=== PATIENT | male | born 1975 | race Caucasian/White ===

== ENCOUNTER 2022-05-02 20:37 | Inpatient (IN) ==
--- NOTE | 2022-05-02 20:50 | Emergency Department Note ---
History of Present Illness General Chief complaint: Fall Stated complaint: FALL / lt HIP PAIN Time Seen by Provider: 05/02/22 20:40 History of Present Illness 46-year-old male presents to the ED with a chief complaint of left hip pain. The patient states that he was doing a high kick karate kick around 7 AM this morning when his other leg lost head loader of the ground causing him to land onto his left side. He has been having left hip pain since then. He states that he walked for a few minutes after that and then has not been able to walk well since because of the pain. The patient has an abrasion to the left maxillary region as well as the left supraorbital region. Denies other injuries or pain. Home Medications Medication Instructions Recorded Confirmed Type No Known Home Medications 05/02/22 05/02/22 History Allergies Allergy/AdvReac Type Severity Reaction Status Date / Time No Known Allergies Allergy Unverified 05/02/22 22:51 Past Med/Surg History Social History Smoking Status: Current every day smoker Tobacco Type: E-cigarettes / Vaping Preferred Language: Zimbabwean Feels Safe at Home: Yes Review of Systems A total of 10 systems reviewed and were otherwise negative Physical Exam Vital Signs Vital Signs - 24 hr 05/02/22 20:48 05/02/22 22:37 05/02/22 23:00 Temperature 37.6 C H Temperature Source Oral Pulse Rate 67 Pulse Rate [Apical] 67 72 Respiratory Rate 18 22 18 Respiratory Effort / Characteristics Non-Labored Spontaneous Non-Labored Spontaneous Non-Labored Spontaneous Respiratory Depth Normal Normal Normal Blood Pressure 114/83 Blood Pressure [Right Arm] 119/65 105/68 Blood Pressure Mean 93 Blood Pressure Mean [Right Arm] 83 80 Pulse Oximetry 99 91 97 Oxygen Delivery Method Room Air Room Air Room Air Sepsis Recent Fever Within 48 Hours No Sepsis New/Unexplained Change in Mental Status No Sepsis Action Taken by Nursing No Action Required CONSTITUTIONAL/VITAL SIGNS: Reviewed / noted above. GENERAL: Non-toxic in appearance. INTEGUMENTARY: Warm, dry, and Rudy. HEAD: Normocephalic. There is a small left maxillary abrasion as well as a left supraorbital abrasion. EYES: without scleral icterus or trauma. ENT/OROPHARYNX: clear and moist. LYMPHADENOPATHY/NECK: Is supple without lymphadenopathy or meningismus. RESPIRATORY: Clear to auscultation bilaterally. No increased work of breathing. CARDIOVASCULAR: Regular rate and rhythm. GI/ABDOMEN: Soft and nontender. No organomegaly or pulsatile mass. EXTREMITIES: Warm and well perfused. Tenderness to palpation of left hip. Pain in left leg with axial loading. No shortening or rotation. BACK: No CVA tenderness. NEUROLOGICAL: Intact without focal deficits. PSYCHIATRIC: normal affect. MUSCULOSKELETAL: Normally developed with good muscle tone. TRIAGE NURSING DOCUMENTATION REVIEWED. Course Administered Medications Morphine Sulfate (Morphine Sulfate 4 Mg/Ml 1 Ml Carp\Vial) 4 mg IV Q1H PRN PRN Reason: Severe Pain (Rating 7,8,9,10) Stop: 05/16/22 22:06 Last Admin: 05/02/22 22:19 Dose: 4 mg Documented by: [id number] Medical Decision Making Differential Diagnosis Fracture, subluxation, dislocation, contusion, ligamentous injury, neurovascular, compartment syndrome, rhabdomyolysis, as well as other pathologies. Medical Records Attestation: I reviewed the patient's medical records. Home Medications Current Medication List: was personally reviewed by me Laboratory Data Result diagrams: 05/02/22 22:49 05/02/22 22:49 Lab Results 05/02/22 05/02/22 Range/Units 22:19 22:49 WBC 12.91 H (4.8-10.8) K/uL RBC 4.43 L (4.7-6.1) M/uL Hgb 14.0 (14.0-18.0) g/dL Hct 39.8 L (42-52) % MCV 89.8 (80-100) fL MCH 31.6 (25-34) pg MCHC 35.2 (32-36) g/dL RDW Std Deviation 40.8 (36.4-46.3) fL RDW Coeff of Crystal 12.4 (11.5-14.5) % Plt Count 207 (130-400) K/uL MPV 9.8 (7.4-10.4) fL Immature Gran % (Auto) 0.2 % Neut % (Auto) 83.3 % Lymph % (Auto) 8.4 % [place] % (Auto) 7.7 % Eos % (Auto) 0.2 % Baso % (Auto) 0.2 % Neut # (Auto) 10.74 H (1.4-6.5) K/uL Lymph # (Auto) 1.09 L (1.2-3.4) K/uL [place] # (Auto) 1.00 H (0.11-0.59) K/uL Eos # (Auto) 0.03 (0-0.5) K/uL Baso # (Auto) 0.02 (0-0.2) K/uL Immature Gran # (Auto) 0.03 H (0.00-0.02) K/uL SARS-CoV-2, RNA, NAAT NEGATIVE (NEGATIVE) Imaging Data My Impression: X-ray of the left hip and pelvis: Per my interpretation shows a nondisplaced intertrochanteric left hip fracture. MDM Narrative 46-year-old male presents with left hip pain after fall around 7 AM this morning onto his left hip. He has abrasions to his left facial region as well. X-ray reveals a left intertrochanteric hip fracture. The patient will be seen by the hospitalist for further inpatient evaluation and care. I did speak with Dr. Mckenna about the patient. He saw the patient in the ED. He requested a CT scan of the hip. Impression & Plan Closed left hip fracture Discharge Plan Visit Data Chief Complaint: Fall Stated Complaint: FALL / lt HIP PAIN ED Provider: Steven Johns Discharge Problem: Closed left hip fracture Patient Disposition: Being Evaluated by Hospitalist Forms Stand Al[facility] Pres[facility] Prescriptions: No Action No Known Home Medications RF: 0 Referrals Referrals: PCP,NO [Physician] - Discharge Problem: Closed left hip fracture Qualifiers: Encounter type: initial encounter Qualified Code(s): S72.002A - Fracture of unspecified part of neck of left femur, initial encounter for closed fracture
[2022-05-02] MEDS ORDERED: MoRPHine SULFATE 2 MG/ML CARP IV PRN (22:07)
[2022-05-02] MEDS: MoRPHine SULFATE 4 MG/ML 1 ML CARP\\VIAL IV PRN ×2 (22:19→23:30)
[2022-05-02 23:05] LABS: Basophils # (auto) 0.02 K/uL (0-0.2); Basophils % (auto) 0.2 %; Eosinophils # (auto) 0.03 K/uL (0-0.5); Eosinophils % (auto) 0.2 %; Hematocrit (blood only) 39.8 % (42-52); Immature Granulocytes # (auto) 0.03 K/uL (0.00-0.02); Immature Granulocytes % (auto) 0.2 %; Lymphocytes # (auto) 1.09 K/uL (1.2-3.4); Lymphocytes % (auto) 8.4 %; Mean Corpuscular Hemoglobin 31.6 pg (25-34); Mean Corpuscular Hgb Conc 35.2 g/dL (32-36); Mean Corpuscular Volume 89.8 fL (80-100); Mean Platelet Volume 9.8 fL (7.4-10.4); Monocytes % (auto) 7.7 %; Neutrophils # (auto) 10.74 K/uL (1.4-6.5); Neutrophils % (auto) 83.3 %; Platelet Count 207 K/uL (130-400); RDW Coefficient of Variation 12.4 % (11.5-14.5); RDW Standard Deviation 40.8 fL (36.4-46.3); Red Blood Count 4.43 M/uL (4.7-6.1); White Blood Count 12.91 K/uL (4.8-10.8)
[2022-05-02 23:20] LABS: Partial Thromboplastin Ratio 0.9; Partial Thromboplastin Time 23.6 Seconds (21.0-31.0); Prothrombin Time 10.8 Seconds (9.0-12.0)
[2022-05-02 23:21] LABS: Albumin Globulin Ratio 1.6 (0.9-2); Albumin Level 4.1 gm/dl (3.4-5.0); BUN Creatinine Ratio 19.4 (10-20); Bilirubin,Total 0.6 mg/dl (0.2-1.0); Calcium 9.2 mg/dl (8.5-10.1); Creatinine Clr Calc Pharmacy 91.4 ml/min; Est GFR (African American) 95.6 ml/min; Est GFR (Non-African American) 82.5 ml/min; Globulin 2.6 gm/dl (2.5-4.0); Potassium 4.1 mmol/L (3.5-5.1); Total Protein 6.7 gm/dl (6.0-8.3)
--- NOTE | 2022-05-03 00:38 | History & Physical Report ---
Date of Service May 03, 2022 Assessment & Plan (1) Closed left hip fracture: Plan: Admit to medical surgical floor N.p.o. after midnight LR at 80 mils per hour Acetaminophen 1 g IV every 8 hours as needed mild pain or fever Morphine sulfate 2 mg IV every 3 hours as needed moderate pain Morphine sulfate 4 mg IV every 3 hours as needed severe pain Zofran 4 mg IV every 6 hours as needed Orthopedic surgery consult Dr. Mckenna has seen the patient in the ED History of Present Illness Chief Complaint: The patient presents emergency department with complaint of left hip pain that occurred as he was attempting a high kick karate kick around 7 AM in the morning, when his right leg lost plastic technician on the ground causing him to land on his left side. Primary Care Provider: SHARI Morrison The patient is a 46-year-old male with no significant past medical history who presents to the emergency department after the acute onset left hip pain as noted above. X-rays in the emergency department revealed a closed left hip fracture. Hip CT showed a mildly comminuted intertrochanteric fracture of the proximal left femur with slight displacement of the greater trochanter and an essentially nondisplaced fracture line extending across the proximal femur to the lesser trochanter. Allergies Allergy/AdvReac Type Severity Reaction Status Date / Time No Known Allergies Allergy Unverified 05/02/22 22:51 Home Medications Medication Instructions Recorded Confirmed Type No Known Home Medications 05/02/22 05/02/22 History Past Med/Surg History Social History Smoking Status: Former smoker Tobacco Type: E-cigarettes / Vaping Smoking End Date: 03/18; Hx Alcohol Use: No Hx Substance Use: No Preferred Language: Romanian Communication Ability: Effective Retarder Operator Required: No Beliefs That Will Affect Care: None Current Living Situation: Other Current Living Situation Comment: inmate Other Information That Helps Us Care for You: No Feels Safe at Home: Yes Review of Systems Review of Systems: The patient denies chest pain, palpitations, shortness of breath, dyspnea on exertion, cough, lower extremity swelling, sore throat, fevers, chills, sweats, weight change, fatigue, nausea, vomiting, diarrhea , constipation, abdominal pain, pelvic pain, blood in urine or stool, dysuria, urinary frequency or urgency, lightheadedness, dizziness, headache, memory loss, loss of consciousness, rash, abnormal bruising or bleeding, focal or generalized weakness, numbness or tingling in arms, generalized arthralgias or myalgias, back or neck pain, or night sweats. The review of systems is otherwise negative other than for that already noted above, and at least 10 systems have been reviewed. Physical Exam Physical Exam: The patient is awake, alert and oriented 3, well developed and well nourished, normocephalic and atraumatic, lying in bed and in no acute distress. HEENT--PERRL, EOMI, mucous membranes and oropharynx normal. Neck--supple. No JVD. No bruits. Thyroid normal, trachea midline, no adenopathy. Heart--normal S1 and S2. No murmurs, rubs or gallops. Lungs--clear bilaterally, no respiratory distress, no accessory muscle use. Abdomen--normal bowel sounds and soft. Nontender. Nondistended, no hernias or masses, no organomegaly. Extremities--no cyanosis or clubbing. No edema. Dermatologic--normal skin turgor, normal color, no abnormal lymph nodes, no rash. Neurologic--cranial nerves II through XII grossly intact. Rheumatologic--limited exam due to left hip pain Psychiatric--normal affect. Results & Data Results & Data ([facility]) Vital Signs (Past 12 Hours) Vital Signs Temp Pulse Pulse Resp BP BP Pulse Ox 05/02/22 23:00 72 18 105/68 97 05/02/22 22:37 67 22 119/65 91 05/02/22 20:48 37.6 C H 67 18 114/83 99 Laboratory Results Laboratory Results WBC 12.91 K/uL (4.8-10.8) H 05/02/22 22:49 RBC 4.43 M/uL (4.7-6.1) L 05/02/22 22:49 Hgb 14.0 g/dL (14.0-18.0) 05/02/22 22:49 Hct 39.8 % (42-52) L 05/02/22 22:49 MCV 89.8 fL (80-100) 05/02/22 22:49 MCH 31.6 pg (25-34) 05/02/22 22:49 MCHC 35.2 g/dL (32-36) 05/02/22 22:49 RDW Std Deviation 40.8 fL (36.4-46.3) 05/02/22 22:49 RDW Coeff of Crystal 12.4 % (11.5-14.5) 05/02/22 22:49 Plt Count 207 K/uL (130-400) 05/02/22 22:49 MPV 9.8 fL (7.4-10.4) 05/02/22 22:49 Immature Gran % (Auto) 0.2 % 05/02/22 22:49 Neut % (Auto) 83.3 % 05/02/22 22:49 Lymph % (Auto) 8.4 % 05/02/22 22:49 [place] % (Auto) 7.7 % 05/02/22 22:49 Eos % (Auto) 0.2 % 05/02/22 22:49 Baso % (Auto) 0.2 % 05/02/22 22:49 Neut # (Auto) 10.74 K/uL (1.4-6.5) H 05/02/22 22:49 Lymph # (Auto) 1.09 K/uL (1.2-3.4) L 05/02/22 22:49 [place] # (Auto) 1.00 K/uL (0.11-0.59) H 05/02/22 22:49 Eos # (Auto) 0.03 K/uL (0-0.5) 05/02/22 22:49 Baso # (Auto) 0.02 K/uL (0-0.2) 05/02/22 22:49 Immature Gran # (Auto) 0.03 K/uL (0.00-0.02) H 05/02/22 22:49 PT 10.8 Seconds (9.0-12.0) 05/02/22 22:49 INR 1.0 (0.9-1.1) 05/02/22 22:49 APTT 23.6 Seconds (21.0-31.0) 05/02/22 22:49 PTT Ratio 0.9 05/02/22 22:49 Sodium 138 mmol/L (136-145) 05/02/22 22:49 Potassium 4.1 mmol/L (3.5-5.1) 05/02/22 22:49 Chloride 104 mmol/L (98-107) 05/02/22 22:49 Carbon Dioxide 29 mmol/L (21-32) 05/02/22 22:49 Anion Gap 5 (3-11) 05/02/22 22:49 BUN 21 mg/dl (6-23) 05/02/22 22:49 Creatinine 1.08 mg/dl (0.6-1.4) 05/02/22 22:49 Est Cr Clr Drug Dosing 91.4 ml/min 05/02/22 22:49 Est GFR ( Amer) 95.6 ml/min 05/02/22 22:49 Est GFR (Non-Af Amer) 82.5 ml/min 05/02/22 22:49 BUN/Creatinine Ratio 19.4 (10-20) 05/02/22 22:49 Glucose 113 mg/dl (70-99(Fasting)) H 05/02/22 22:49 Calcium 9.2 mg/dl (8.5-10.1) 05/02/22 22:49 Total Bilirubin 0.6 mg/dl (0.2-1.0) 05/02/22 22:49 AST 28 U/L (13-39) 05/02/22 22:49 ALT 16 U/L (7-52) 05/02/22 22:49 Alkaline Phosphatase 68 U/L (34-104) 05/02/22 22:49 Total Protein 6.7 gm/dl (6.0-8.3) 05/02/22 22:49 Albumin 4.1 gm/dl (3.4-5.0) 05/02/22 22:49 Globulin 2.6 gm/dl (2.5-4.0) 05/02/22 22:49 Albumin/Globulin Ratio 1.6 (0.9-2) 05/02/22 22:49 25-OH Vitamin D Total 27.8 ng/ml (30-100) L 05/03/22 01:40 PTH Intact 51.2 pg/ml (12.0-88.0) 05/03/22 01:40 SARS-CoV-2, RNA, NAAT NEGATIVE (NEGATIVE) 05/02/22 22:19 Diagnostic Findings [facility] Patient: YANI FORREST [id number] (Male) : 77 Status: ER Date: 05/03/22 00:13 Room #: History: FELL, PAIN AT LEFT HIP Slices: [phone] Priors: Jacobo: Ismael Rae @ [phone] Exams: CT LEFT HIP Contrast: Accession Numbers: [id number] Referring Physician: CHELLY MCCARTHY Preliminary Findings Only See Final Report For Complete Findings CT LEFT HIP: There is a mildly comminuted intertrochanteric fracture of the proximal left femur with slight displacement of the greater trochanter and an essentially nondisplaced fracture line extending across the proximal femur to the lesser trochanter. The pelvis appears intact. Probable constipation with 8 cm of stool in the rectum. Pelvic soft tissues are otherwise unremarkable. Radiologist: Marcus Breaux MD Study ready at 00:18 and initial results transmitted at 00:22 *This report constitutes a preliminary interpretation only. Non-acute findings felt to be unrelated to the clinical presentation may not be discussed in this report. The study will be interpreted and a final report will be generated by the local Radiologist the following shift. To reach the hospital radiology department call [phone]. If a discrepancy is found between the preliminary and final interpretations of this study, please notify us via our Client Portal at [email or web address], under QA Exams. You can also fax this report with a description of the discrepancy, or include the final report, to our daytime fax number [phone]. If faxing, please indicate the severity of discrepancy using one of the following categories: [ ] 1 - Agree/Informational [ ] 2 - Unlikely to Affect Management [ ] 3 - Possible Eventual Change of Management [ ] 4 - Probable Immediate Change of Management For all other patient related information, please fax us at [phone]. [id number] Code Status & VTE Plan Code Status Full code VTE Prophylaxis Plan VTE Prophylaxis will be ordered: Yes PG Care Time/CCT Total # of Minutes Spent Total Time Spent with Patient: Total time spent is greater than 50% in coordination of care (as documented) at patient's floor/unit and/or counseling patient: Coding Level of Care Code 09734 Initial Inpt Care Lvl 2 Diagnoses Closed left hip fracture S72.002A Encounter type: initial encounter (1) Closed left hip fracture Encounter type: initial encounter Qualified Code(s): S72.002A - Fracture of unspecified part of neck of left femur, initial encounter for closed fracture
--- NOTE | 2022-05-03 01:07 | Consultation Report ---
DATE OF SERVICE: 05/02/2022 HISTORY OF PRESENT ILLNESS: The patient is a 46-year-old gentleman. Presently incarcerated. He was doing a karate kick when his leg slipped out from underneath him and he landed directly on his left hip and also hit his head. There is no prior history of a hip injury. He had difficulty getting up. He hobbled and/or was assisted or hopped back to his room. Significant and increasing pain in the left hip area accompanied by muscle spasms. There is no prior history of hip injuries. He was broug ht to the ER where x-rays revealed a questionable fracture. PAST MEDICAL HISTORY: Hernia and PTSD. MEDICATIONS: None. ALLERGIES: None. SOCIAL HISTORY: He works in construction. He has a and daughter. He is currently incarcerated . PAST SURGICAL HISTORY: Facial surgery, finger surgery, hernia surgery. DATA: Radiographs of the hip and pelvis show a fracture involving the greater trochanter. There may be a nondisplaced fracture through the intertrochanteric region. There is no dislocation or AVN inv olving the left hip. Report pending. Labs; white count 13, likely secondary to stress. Hemoglobin 14, hematocrit 40, platelets 207. PT/INR within normal limits. PRP noted everything normal except e levated glucose. COVID negative. PHYSICAL EXAMINATION: Dorsalis pedis and posterior tibial pulses are 1+. Sensation intact in the l eft leg, 5/5 ankle and toe plantar flexion, dorsiflexion, inversion and eversion strength. Left leg is nontender except for the hip area. There is a bruise posterolaterally. He can move the right leg okay. He is awake, alert and oriented, in no acute distress. IMPRESSION: Left hip injury. PLAN: Findings are discussed. I spoke with Dr. Johns. Check CT scan to further evaluate. There could be a nondisplaced greater trochanter fracture. I am suspicious of an intertrochanteric fractur e extension, which is nondisplaced. I think the difference between these is no surgery versus surger y. Therefore, we will need to get a CT scan to evaluate. In the meantime, he will be admitted by me dicine, nonweightbearing, pain control, n.p.o. after midnight. Plan for surgery tomorrow if CT scan confirms an intertrochanteric fracture. He is educated about the operation. We talked about the ris ks, benefits, rehab and recovery, and an informed consent was obtained. He has no history of bleeding or blood clots, metal allergies or MRSA. He denies any history of hear t disease, lung disease, cancer or diabetes. Plan will be a short trochanteric nail if indeed it is an intertrochanteric fracture. Job ID: [id number]
[2022-05-03] MEDS ORDERED: ONDANSETRON INJ 2 MG/ML 2 ML VIAL IV PRN ×2 (01:29→15:24)
[2022-05-03] MEDS ORDERED: MoRPHine SULFATE 2 MG/ML CARP IV PRN (01:29)
[2022-05-03] MEDS ORDERED: ACETAMINOPHEN 1,000 MG/100 ML VIAL IV PRN (01:29)
[2022-05-03] MEDS ORDERED: MoRPHine SULFATE 4 MG/ML 1 ML CARP\\VIAL ONE (01:33)
[2022-05-03] MEDS: LACTATED RINGER'S 1,000 ML IV SCH ×2 (01:57→14:20)
[2022-05-03] MEDS: MoRPHine SULFATE 4 MG/ML 1 ML CARP\\VIAL IV PRN ×5 (05:36→21:52)
--- NOTE | 2022-05-03 07:18 | XRay Report ---
XR pelvis 1-2V routine, XR femur LT 2V routine CLINICAL HISTORY: left hip pain TECHNIQUE: A single frontal view of the pelvis was obtained. 2 views of the left femur were obtained. Comparison: None available at the time of this dictation. FINDINGS: There is an intratrochanteric fracture of the left femur which is nondisplaced. Mild degenerative imani nges are seen in left greater than right hips. Soft tissue swelling is seen about the left hip. IMPRESSION: Nondisplaced intratrochanteric fracture of the left hip. ACT 112: Negative or not required by law. Electronically signed by: Rojelio Lomeli M.D. 05/03/2022 7:17 AM
--- NOTE | 2022-05-03 07:20 | XRay Report ---
XR chest 1V portable CLINICAL HISTORY: left hip fx TECHNIQUE: Single frontal radiograph of the chest was obtained. Comparison: None available at the time of this dictation. FINDINGS: No lines and tubes are seen. The cardiomediastinal silhouette is normal. The lungs are clear. No evid ence of pleural effusion or pneumothorax. IMPRESSION: No acute chest disease. ACT 112: Negative or not required by law. Electronically signed by: Rojelio Lomeli M.D. 05/03/2022 7:18 AM
--- NOTE | 2022-05-03 08:10 | CT Scan Report ---
CT SCAN OF THE LEFT HIP WITHOUT IV CONTRAST CLINICAL HISTORY: Left hip fracture. COMPARISON STUDY: Radiographs of the left femur dated 05/02/2022. TECHNIQUE: CT scan of the left hip is performed from the bony pelvis to the femoral shaft. Images are reviewed in the axial, sagittal, coronal planes. IV contrast was not administered for this examinati on. 3-D reformats are created and assessed. A dose lowering technique was utilized adhering to the pr inciples of HENRY. CT DOSE: 150.18 mGy.cm FINDINGS: The skeletal structures are well mineralized. There is a comminuted intertrochanteric fract ure of the left proximal femur. The largest fragment of the greater trochanter is displaced by 7 mm. Overlying hemorrhage is noted. No additional fracture is seen involving the visualized left hemipelvi s. The joint space of the left hip is well maintained. There is no evidence of avascular necrosis of the left femoral head. No lytic or blastic lesion is seen. There is no significant hip joint effusion . No large hematoma is identified. The regional musculature is normal in bulk. The partially visualiz ed bladder is decompressed around a Rogel catheter. No left pelvic sidewall or inguinal adenopathy is seen. There is rectosigmoid fecal impaction. IMPRESSION: Intertrochanteric fracture of the left proximal femur as above. ACT 112: Negative or not required by law. Dictated: 05/03/2022 7:45 AM Transcribed: 05/03/2022 8:03 AM Mayela [id number] [email or web address] Electronically signed by: Matthew Powell M.D. 05/03/2022 8:07 AM
--- NOTE | 2022-05-03 09:25 | Orthopedic Progress Note ---
Date of Service May 03, 2022 Assessment & Plan (1) Closed left hip fracture: Plan: Patient is to be nonweightbearing on his left lower extremity Pain control with IV medication He has been n.p.o. since 5 PM yesterday Informed consent to perform with surgical intervention has been obtained Plan is to proceed with a short intertrochanteric nailing for his fracture later this afternoon Admission and Anticipated Discharge Date Admission Date: May 03, 2022 Subjective This 46-year-old male inmate from [facility] was seen this morning for a left intertrochanteric hip fracture that he sustained after attempted to do a karate kick. He states that he lost his balance and landed directly on his left hip. Patient states that he also struck the side of his face and has an abrasion to his left cheek. He states that he is okay as long as he does not try to move the leg. Currently he denies any chest pain, shortness of breath, fever, chills , sweats, lethargy or numbness or tingling in his left lower extremity. He states that his pain is well controlled with the IV pain medication that has been provided. Review of Systems Review of Systems: All systems reviewed & are unremarkable except as noted in Subjective Physical Exam Physical Exam: Left lower extremity: Patient is unable to perform active straight leg raise test. He is able to actively dorsi and plantarflex foot without issue. There is exquisite tenderness to palpation of the greater trochanter with notable edema and ecchymosis. Patient does not tolerate passive logrolling very well. He complains of extreme pain over the greater trochanter and in his groin area. There is no sign of any skin breakdown. There is no erythema, warmth or palpable knee deformity. Patient is neurovascularly intact in the left lower extremity. Results & Data ([facility]) Vital Signs (Past 12 Hours) Vital Signs Temp Pulse Pulse Resp BP BP Pulse Ox 05/03/22 08:02 36.8 C 61 16 111/58 L 99 05/03/22 01:30 37.0 C 78 18 118/70 99 05/03/22 01:00 74 16 116/76 98 05/02/22 23:00 72 18 105/68 97 05/02/22 22:37 67 22 119/65 91 Diagnostic Findings Laboratory Results WBC 12.91 K/uL (4.8-10.8) H 05/02/22 22:49 RBC 4.43 M/uL (4.7-6.1) L 05/02/22 22:49 Hgb 14.0 g/dL (14.0-18.0) 05/02/22 22:49 Hct 39.8 % (42-52) L 05/02/22 22:49 MCV 89.8 fL (80-100) 05/02/22 22:49 MCH 31.6 pg (25-34) 05/02/22 22:49 MCHC 35.2 g/dL (32-36) 05/02/22 22:49 RDW Std Deviation 40.8 fL (36.4-46.3) 05/02/22 22:49 RDW Coeff of Crystal 12.4 % (11.5-14.5) 05/02/22 22:49 Plt Count 207 K/uL (130-400) 05/02/22 22:49 MPV 9.8 fL (7.4-10.4) 05/02/22 22:49 Immature Gran % (Auto) 0.2 % 05/02/22 22:49 Neut % (Auto) 83.3 % 05/02/22 22:49 Lymph % (Auto) 8.4 % 05/02/22 22:49 Gladwin % (Auto) 7.7 % 05/02/22 22:49 Eos % (Auto) 0.2 % 05/02/22 22:49 Baso % (Auto) 0.2 % 05/02/22 22:49 Neut # (Auto) 10.74 K/uL (1.4-6.5) H 05/02/22 22:49 Lymph # (Auto) 1.09 K/uL (1.2-3.4) L 05/02/22 22:49 Gladwin # (Auto) 1.00 K/uL (0.11-0.59) H 05/02/22 22:49 Eos # (Auto) 0.03 K/uL (0-0.5) 05/02/22 22:49 Baso # (Auto) 0.02 K/uL (0-0.2) 05/02/22 22:49 Immature Gran # (Auto) 0.03 K/uL (0.00-0.02) H 05/02/22 22:49 PT 10.8 Seconds (9.0-12.0) 05/02/22 22:49 INR 1.0 (0.9-1.1) 05/02/22 22:49 APTT 23.6 Seconds (21.0-31.0) 05/02/22 22:49 PTT Ratio 0.9 05/02/22 22:49 Sodium 138 mmol/L (136-145) 05/02/22 22:49 Potassium 4.1 mmol/L (3.5-5.1) 05/02/22 22:49 Chloride 104 mmol/L (98-107) 05/02/22 22:49 Carbon Dioxide 29 mmol/L (21-32) 05/02/22 22:49 Anion Gap 5 (3-11) 05/02/22 22:49 BUN 21 mg/dl (6-23) 05/02/22 22:49 Creatinine 1.08 mg/dl (0.6-1.4) 05/02/22 22:49 Est Cr Clr Drug Dosing 91.4 ml/min 05/02/22 22:49 Est GFR ( Amer) 95.6 ml/min 05/02/22 22:49 Est GFR (Non-Af Amer) 82.5 ml/min 05/02/22 22:49 BUN/Creatinine Ratio 19.4 (10-20) 05/02/22 22:49 Glucose 113 mg/dl (70-99(Fasting)) H 05/02/22 22:49 Calcium 9.2 mg/dl (8.5-10.1) 05/02/22 22:49 Total Bilirubin 0.6 mg/dl (0.2-1.0) 05/02/22 22:49 AST 28 U/L (13-39) 05/02/22 22:49 ALT 16 U/L (7-52) 05/02/22 22:49 Alkaline Phosphatase 68 U/L (34-104) 05/02/22 22:49 Total Protein 6.7 gm/dl (6.0-8.3) 05/02/22 22:49 Albumin 4.1 gm/dl (3.4-5.0) 05/02/22 22:49 Globulin 2.6 gm/dl (2.5-4.0) 05/02/22 22:49 Albumin/Globulin Ratio 1.6 (0.9-2) 05/02/22 22:49 25-OH Vitamin D Total 27.8 ng/ml (30-100) L 05/03/22 01:40 PTH Intact 51.2 pg/ml (12.0-88.0) 05/03/22 01:40 Nasal Screen MRSA (PCR) Negative (Negative) 05/03/22 01:55 SARS-CoV-2, RNA, NAAT NEGATIVE (NEGATIVE) 05/02/22 22:19 Impressions Femur X-Ray 05/02/22 20:45 XR pelvis 1-2V routine, XR femur LT 2V routine CLINICAL HISTORY: left hip pain TECHNIQUE: A single frontal view of the pelvis was obtained. 2 views of the left femur were obtained. Comparison: None available at the time of this dictation. FINDINGS: There is an intratrochanteric fracture of the left femur which is nondisplaced. Mild degenerative changes are seen in left greater than right hips. Soft tissue swelling is seen about the left hip. IMPRESSION: Nondisplaced intratrochanteric fracture of the left hip. ACT 112: Negative or not required by law. Electronically signed by: Rojelio Lomeli M.D. 05/03/2022 7:17 AM Pelvis X-Ray 05/02/22 20:45 XR pelvis 1-2V routine, XR femur LT 2V routine CLINICAL HISTORY: left hip pain TECHNIQUE: A single frontal view of the pelvis was obtained. 2 views of the left femur were obtained. Comparison: None available at the time of this dictation. FINDINGS: There is an intratrochanteric fracture of the left femur which is nondisplaced. Mild degenerative changes are seen in left greater than right hips. Soft tissue swelling is seen about the left hip. IMPRESSION: Nondisplaced intratrochanteric fracture of the left hip. ACT 112: Negative or not required by law. Electronically signed by: Rojelio Lomeli M.D. 05/03/2022 7:17 AM Chest X-Ray 05/02/22 22:08 XR chest 1V portable CLINICAL HISTORY: left hip fx TECHNIQUE: Single frontal radiograph of the chest was obtained. Comparison: None available at the time of this dictation. FINDINGS: No lines and tubes are seen. The cardiomediastinal silhouette is normal. The lungs are clear. No evidence of pleural effusion or pneumothorax. IMPRESSION: No acute chest disease. ACT 112: Negative or not required by law. Electronically signed by: Rojelio Lomeli M.D. 05/03/2022 7:[address] 05/02/22 23:09 CT SCAN OF THE LEFT HIP WITHOUT IV CONTRAST CLINICAL HISTORY: Left hip fracture. COMPARISON STUDY: Radiographs of the left femur dated 05/02/2022. TECHNIQUE: CT scan of the left hip is performed from the bony pelvis to the femoral shaft. Images are reviewed in the axial, sagittal, coronal planes. IV contrast was not administered for this examination. 3-D reformats are created and assessed. A dose lowering technique was utilized adhering to the principles of ALARA. CT DOSE: 150.18 mGy.cm FINDINGS: The skeletal structures are well mineralized. There is a comminuted intertrochanteric fracture of the left proximal femur. The largest fragment of the greater trochanter is displaced by 7 mm. Overlying hemorrhage is noted. No additional fracture is seen involving the visualized left hemipelvis. The joint space of the left hip is well maintained. There is no evidence of avascular necrosis of the left femoral head. No lytic or blastic lesion is seen. There is no significant hip joint effusion. No large hematoma is identified. The regional musculature is normal in bulk. The partially visualized bladder is decompressed around a Rogel catheter. No left pelvic sidewall or inguinal adenopathy is seen. There is rectosigmoid fecal impaction. IMPRESSION: Intertrochanteric fracture of the left proximal femur as above. ACT 112: Negative or not required by law. Dictated: 05/03/2022 7:45 AM Transcribed: 05/03/2022 8:03 AM Mayela [id number] [email or web address] Electronically signed by: Matthew Powell M.D. 05/03/2022 8:07 AM (1) Closed left hip fracture Encounter type: initial encounter Qualified Code(s): S72.002A - Fracture of unspecified part of neck of left femur, initial encounter for closed fracture
[2022-05-03] MEDS ORDERED: BACLOFEN 10 MG TAB PO PRN (09:58)
[2022-05-03] MEDS: MUPIROCIN 2% OINT 22 GM TUBE EXT SCH ×2 (11:34→21:53)
--- NOTE | 2022-05-03 13:45 | Communication Note ---
Date of Service: May 03, 2022 Patient seen on daily rounds today. He is a 46-year-old white male with no underlying past medical history who [facility] a ground-level fall. He was doing a roundhouse karate kick when he lost his footing and fell on his left side. Found to have nondisplaced intertrochanteric left hip fracture. Plan is for IM nailing today. Patient denies a personal, and/or family history of DVT, PE, blood dyscrasia. No medical problems. Denies hypertension, diabetes mellitus, heart disease, pulmonary disease, etc. His lab data revealed mild leukocytosislikely reactive and vitamin D deficiency His only complaint today is significant spasm of his left hip Patient is awake and alert. He has a questionable left-sided facial droop which he claims is not a new finding RRR without M/G/R CTA without W/R/R Normoactive X4. Soft and nontender Left lower extremity externally rotated and shortened. Neurovascularly intact A/P: 1. Nondisplaced left intertrochanteric hip fracture 2. Vitamin D deficiency * For surgical intervention today (IM nailing) * Add baclofen for associated spasm * Will need postoperative pain management, PT/OT, incentive spirometry, and DVT prophylaxis * Start vitamin D supplementation. Likely result of being incarcerated
[2022-05-03] MEDS ORDERED: LIDOCAINE 2% 2 ML VIAL/AMP(20MG/ML) INFIL ONE (15:01)
[2022-05-03] MEDS ORDERED: MIDAZOLAM HCL 1 MG/ML 2ML VIAL ONE ×2 (15:01→16:24)
[2022-05-03] MEDS ORDERED: ONDANSETRON INJ 2 MG/ML 2 ML VIAL ONE (15:01)
[2022-05-03] MEDS ORDERED: PROPOFOL IV EMULSION 10 MG/ML 20 ML VIAL IV ONE ×4 (15:01→19:02)
[2022-05-03] MEDS ORDERED: ROCURONIUM BROMIDE 10 MG/ML 5 ML VIAL IV ONE (15:01)
[2022-05-03] MEDS ORDERED: DEXAMETHASONE SOD INJ 4 MG/ML VIAL ONE (15:01)
[2022-05-03] MEDS ORDERED: fentaNYL citrate 100 MCG/2 ML VIAL ONE (15:01)
[2022-05-03] MEDS ORDERED: ATROPINE SULFATE 0.1 MG/ML 10ML SYR IV PRN (15:24)
[2022-05-03] MEDS ORDERED: fentaNYL citrate 100 MCG/2 ML VIAL IV PRN (15:24)
[2022-05-03] MEDS ORDERED: MoRPHine SULFATE 10 MG/ML CARP/VIAL IV PRN (15:24)
[2022-05-03] MEDS ORDERED: ePHEDrine sulfate 50 MG/ML AMP IV PRN (15:24)
[2022-05-03] MEDS ORDERED: MEPERIDINE HCL 25 MG/ML CARP/VIAL IV PRN (15:24)
--- NOTE | 2022-05-03 15:28 | Anesthesiology Consultation ---
Date of Service May 03, 2022 Assessment & Plan Chart Review Chart Review: Acceptable Risk for Surgery Consults Requested none ASA ASA2 Proposed Anesthesia Anesthesia Type: MAC Spinal Risk / Benefits Reviewed With: PT / POA / Parent / Guardian, Accepts Plan and Informed Consent Obtained History Surgery Operation Date: 05/03/22 08:20 Proposed Procedures p Left Hip Short Troch Nail - Paulino Mckenna MD Height/Weight Height: 5 ft 11 in Weight: 72.717 kg Allergies Allergy/AdvReac Type Severity Reaction Status Date / Time No Known Allergies Allergy Unverified 05/02/22 22:51 Medications Home Medications Medication Instructions Recorded Confirmed Last Taken No Known Home Medications 05/02/22 05/02/22 Unknown Active Medications Generic Name Dose Route Start Last Admin Trade Name Freq PRN Reason Stop Dose Admin Baclofen 10 mg 05/03/22 09:58 05/03/22 11:34 Baclofen 10 Mg Tab PO 06/02/22 13:59 10 mg TID PRN Administration spasm Lactated Ringer's 1,000 mls @ 80 mls/hr 05/03/22 01:29 05/03/22 14:20 Lr IV 06/02/22 01:28 80 mls/hr .[id number] FITO Administration Morphine Sulfate 4 mg 05/03/22 01:29 05/03/22 14:57 Morphine Sulfate 4 Mg/Ml 1 Ml Carp\Vial IV 05/17/22 01:28 4 mg Q3H PRN Administration Severe Pain (7,8,9,10) Mupirocin 1 appln 05/03/22 10:00 05/03/22 11:34 Mupirocin 2% Oint 22 Gm Tube EXT 06/02/22 09:59 1 appln BID FITO Administration Ondansetron HCl 4 mg 05/03/22 01:29 05/03/22 08:06 Ondansetron Inj 2 Mg/Ml 2 Ml Vial IV 06/02/22 01:28 4 mg Q6H PRN Administration Nausea NPO Date Last Intake of Fluids: 05/02/22 Time Last Intake of Fluids: 23:59 Date Last Intake of Solids: 05/03/22 Time Last Intake of Solids: 17:00 Past Medical History Medical History (Updated 05/03/22 @ 15:33 by Kimberly Gary DO) Closed left hip fracture History of amputation of finger no sig pmh Exercise / Class Metabolic Activity 1 > 8 Run/Swim/Ski/Tennis Past Surgical History Surgical History (Updated 05/03/22 @ 15:33 by Kimberly Gary DO) History of facial fracture repair History of testicular surgery Past Anesthesia History No Hx of Anesthesia Complications and No Family Hx of Anesthesia Complications History of PONV No Hx of PONV and No Hx of Motion Sickness Social History Smoking Status: Former smoker Smoking End Date: 03/18 Hx Alcohol Use: No Hx Substance Use: No Physical Exam Vital Signs Last Vital Signs Temp 36.8 C 05/03/22 08:02 Pulse 61 05/03/22 08:02 Resp 16 05/03/22 08:02 BP 111/58 L 05/03/22 08:02 Pulse Ox 99 05/03/22 08:02 ENMT Mouth: + dentition abnormality (Poor lower front teeth due to gingival disease); no TMJ abnormality Thyromental Distance: > or= 3.5 Finger Breadths Mallampati Class: II Neck normal visual inspection and trachea midline; neck extension not limited Respiratory normal respiratory effort Auscultation: lungs clear to auscultation bilaterally Cardiovascular Rate/Rhythm: regular rate and regular rhythm Heart Sounds: no murmur Musculoskeletal Spine: normal cervical ROM Extremities: full ROM of extremities Skin left cheek and eyebrow abrasions Neurologic moves all extremities (With reservation due to pain) Psychiatric Orientation: alert and oriented x 3 Testing Laboratory Results 05/02/22 22:49 05/02/22 22:49 PT 10.8 Seconds (9.0-12.0) 05/02/22 22:49 INR 1.0 (0.9-1.1) 05/02/22 22:49 APTT 23.6 Seconds (21.0-31.0) 05/02/22 22:49 Electrocardiogram Date: 05/02/22 Findings: + NSR @ Chest X-Ray Date: 05/02/22 Findings: + NAD
[2022-05-03] MEDS ORDERED: ceFAZolin 1000MG 1,000 MG/7.5 ML SYR IV ONE (15:38)
[2022-05-03] MEDS ORDERED: KETAMINE 50 MG/5 ML SYRINGE ONE (16:13)
[2022-05-03] MEDS ORDERED: BUPIVACAINE 0.5 % 5 MG/1 ML MPF 30ML VIAL ONE (16:24)
[2022-05-03] MEDS ORDERED: ePHEDrine sulfate 50 MG/ML AMP ONE (17:06)
[2022-05-03] MEDS ORDERED: TRANEXAMIC ACID / 0.7% NACL 1000MG/100ML BAG IV ONE (17:24)
--- NOTE | 2022-05-03 19:50 | Operative Report ---
Post Operative Report Pre & Post Diagnosis Operation Date: 05/03/22 08:20 Pre-Op Diagnosis: Nondisplaced left hip intertrochanteric fracture, displaced greater tuberosity fracture Post-Op Diagnosis: Same I identified the patient and participated in the time-out.: Yes Procedure Operation Date: 05/03/22 08:20 Actual Procedures p Left Hip Open Reduction Internal Fixation with Dynamic Hip Screw and tension band wiring of the greater trochanter.- Paulino Mckenna MD Surgeon Paulino Mckenna MD Orthopaedic Nurse Michael Valencia fellow and [facility] physicians human resources office assistant Estimated Blood Loss 100 Findings Consistent with Post-Op Diagnosis Specimens None Drains None Anesthesia Type Spinal MAC Complications none Disposition Accompanied Patient To Recovery: No Disposition: Recovery Room Indications Patient is a 46-year-old gentleman status post fall resulting in a nondisplaced intertrochanteric fracture and what looks to be a separate slightly displaced posterior greater trochanter fracture. I recommended operative intervention. He agreed to proceed. Description of Procedure Informed consent obtained. Patient identified he identified the operative site as the left hip. I marked with my initials. A preoperative surgical timeout was performed and a preop dose of IV antibiotics was given. He was taken to the operating room positioned supine on the fracture table. A well-padded perineal post was utilized. The right leg was placed up in 90 degrees of hip and knee flexion and physiologic abduction and secured with a padded leg fonseca. Left leg was placed into longitudinal traction with a padded boot. The left arm was folded over the chest held with a papoose and tape and the right arm was placed out on an armboard. Bony prominences were inspected and padded. The hip was prescribed prepped and draped in usual sterile fashion. DVT prophylaxis with mechanical devices intraoperatively. Gentle longitudinal traction was applied and some internal rotation about 10 to 15 degrees and this resulted in anatomic alignment of the intertrochanteric fracture at the greater trochanter fracture still remained a little bit medially displaced. This did not change with rotation or abduction. It was not clear from the CT scan whether this was a separate fragment or continuation of the intertrochanteric fracture. I suspected that it was a free fragment. I had concerns about using the troches nail as this would go directly through the greater trochanter fracture and may comminuted and enable further displacement especially with the large reamer. Therefore I debated about the possibility of using a tension band technique to fix it if it was separate and then using a DHS to fix the stable simple nondisplaced intertrochanteric fracture. I made a longitudinal incision over the trochanter use electrocautery down to the subcutaneous tissues to expose the gluteal fascia and the origin of the IT band which was divided longitudinally. I was then able to open this up and identified the trochanteric fracture. It was palpable on the posterior lateral cortex. I was able to then take a bone hook place it medially and pull on it and demonstrate that it was a free displaced fragment. I therefore extended the incision proximally and distally for a distance of about total 20 cm. The IT ba nd was split in line with the incision as was the gluteal fascia. Hemorrhagic greater trochanteric bursa was excised. Chen retractors and a pointed Hohmann's were inserted directly on bone after dividing the vastus lateralis longitudinally in its mid substance. Subperiosteal exposure of the proximal femur was performed on its lateral surface. The greater trochanter fracture was exposed posterolaterally. This was essentially an area where the soft tissues had been disrupted because of the fracture. I left the abductor attachments intact cleaned up the fracture site. I then took a large bone clamp placed it across the posterior aspect of the greater trochanter and over to the anterior aspect of the femur and I was able to achieve a pretty reasonable reduction visually and fluoroscopically. I then turned my attention to the femur where I inserted a guidepin into the center center position of the femoral head. It was slightly posterior on the lateral view and slightly inferior on the AP view. This was adjusted x1. Length was determined it was overreamed tapped and the screw was inserted. The 2 hole sideplate was then not impacted after adjusting rotation. 2 bicortical s crews were then inserted to secure this. I inserted a 18-gauge wire just below the barrel plate junction between the plate and the implant for later fixation. The lag bolt was within a centimeter to 12 mm of the apex of the femoral head and in good position the trochanteric fracture remained anatomically aligned. I then went ahead and adjusted the bone clamp and was able to achieve an anatomic reduction. Then airplane the table away from os and internally rotating the leg little bit more and was able to get access to the posterior lateral trochanter. I then inserted 2.062 inch K wires from posterior lateral to anteromedial piercing the trochanteric fragment and holding it into position. The clamp was then able to be removed. The pins were palpable coming out the anterior cortex slightly. I then took an 18-gauge wire and passed it around these pins right the tip of the trochanter made at [id number] fashion. These wires were then twisted to tighten resulting in anatomic alignment and good stability of the fragment. I then went ahead and backed the wires out about a centimeter bent thumb over and then we impacted them so that they remain bicortical and were covering over the wire proximally. The wires were finally twisted cut and bent down onto the bone. They were eventually covered with vastus lateralis muscle and fascia so that they did not a rub on the bursa. Copious irrigation was performed throughout the surgical procedure and meticulous hemostasis was achieved with electrocautery. We then obtain some radiographs demonstrating good reduction of both fractures good positioning of the hardware. The vastus lateralis was loosely approximated to itself via the fascia with 0 Vicryl. The IT band and gluteal fascia was reapproximated with interrupted #1 Vicryl the skin was closed in layers with 0 and 2-0 Vicryl's and finally kaylyn on the skin this was followed by cleaning the skin with 1 dry sponges and Xeroform 4 x 4's ABD foam tape. Patient was awakened from anesthesia without difficulty taken to the recovery room in stable condition. There were no specimens or complications counts were correct and blood loss is estimated to be 100 cc. At the conclusion the operation it was not appropriate to speak it to anyone because the patient is incarcerated. We will begin Lovenox the morning after surgery. He will be toe- touch weightbearing. PT OT. Postop antibiotics. We used the Synthes 2 hole DHS plate. The compression screw was also inserted. I attest to the content of the Intraoperative Record and any orders documented therein. Any exceptions are noted below.
--- NOTE | 2022-05-03 19:58 | Fluoroscopy Report ---
FL hip LT 2-3V HISTORY: 46 years-old Male LT SHORT TROCH acute fracture of the left femur COMPARISON: CT left hip 05/02/2022 TECHNIQUE: 5 spot fluoroscopic images of the left hip were obtained utilizing 105.2 seconds fluorosco py time FINDINGS: Status post placement of an intertrochanteric nail with lateral fixation plate fixating the acute int ertrochanteric left femoral fracture. There are 2 K wire devices within the greater trochanter with c erclage wires. Satisfactory near-anatomic alignment. Expected postoperative soft tissue swelling with deep tissue air. IMPRESSION: Fluoroscopic assistance as above. ACT 112: Negative or not required by law. The above report was generated using voice recognition software. It may contain grammatical, syntax o r spelling errors. Electronically signed by: Mitchel Castanon M.D. 05/03/2022 7:57 PM
[2022-05-03] MEDS ORDERED: KETOROLAC 30 MG/ML VIAL IV PRN ×2 (20:15→20:16)
--- NOTE | 2022-05-03 20:15 | Operative Report ---
Post Operative Report Pre & Post Diagnosis Operation Date: 05/03/22 08:20 Pre-Op Diagnosis: Closed left hip fracture Post-Op Diagnosis: Closed left hip fracture I identified the patient and participated in the time-out.: Yes Procedure Operation Date: 05/03/22 08:20 Actual Procedures p Left Hip Open Reduction Internal Fixation with Dynamic Hip Screw(Left) - Paulino Mckenna MD Surgeon Celio Mckenna MD Econometrics Professor Michael Valencia fellow and [facility] physicians diploma dental assistant Estimated Blood Loss 100 Findings Consistent with Post-Op Diagnosis Consistent with post op findings. Specimens No specimens Description of Procedure I participated in prepping dressing and assisted Dr. Mckenna during the procedure. I attest to the content of the Intraoperative Record and any orders documented therein. Any exceptions are noted below.
--- NOTE | 2022-05-03 20:15 | Operative Report ---
Post Operative Report Pre & Post Diagnosis Operation Date: 05/03/22 08:20 Pre-Op Diagnosis: Closed left hip fracture Post-Op Diagnosis: Closed left hip fracture I identified the patient and participated in the time-out.: Yes Procedure Operation Date: 05/03/22 08:20 Actual Procedures p Left Hip Open Reduction Internal Fixation with Dynamic Hip Screw(Left) - Paulino Mckenna MD Surgeon Dr Mckenna Bulb Sorter Michael Valencia fellow and [facility] physicians administrative assistant Estimated Blood Loss 100 Findings Consistent with Post-Op Diagnosis Specimens none Description of Procedure Pt was taken to operating room, placed under general anesthesia with peripheral nerve block. Pt was given 2g Ancef IV. Prepped and draped in sterile fashion. I was present during the entire case and assisted with positioning, instrumentation, closure and dressings. Please see Dr. Mckenna's op report for further detail. Pt was awake and transferred to PACU in stable condition I attest to the content of the Intraoperative Record and any orders documented therein. Any exceptions are noted below.
[2022-05-03] MEDS: fentaNYL citrate 100 MCG/2 ML VIAL IV PRN ×4 (20:17→20:38)
[2022-05-03] MEDS ORDERED: oxyCODONE HCL IR 5 MG TAB (IMMEDIATE RELEASE) PO PRN (20:19)
[2022-05-03] MEDS ORDERED: ondansetron HCL 8 MG in DEXTROSE 5% 50 ML IV PRN (20:21)
[2022-05-03] MEDS: HYDROmorphone INJ 2 MG/ML SYR/VIAL IV PRN ×2 (20:45→20:50)
[2022-05-03] MEDS: SODIUM CHLORIDE 0.9% 1000ML 1,000 ML IV SCH (21:52)
[2022-05-04] MEDS: MoRPHine SULFATE 4 MG/ML 1 ML CARP\\VIAL IV PRN ×3 (02:38→10:32)
[2022-05-04] MEDS: ceFAZolin 2000MG 2,000 MG/15 ML SYR IV SCH ×2 (02:38→10:29)
--- NOTE | 2022-05-04 03:40 | Anesthesiology Progress Note ---
Date of Service May 04, 2022 Anesthesia Post Procedure Vital Signs Vital Signs: Temp Pulse Pulse Resp BP Pulse Ox 05/04/22 03:36 36.9 C 70 18 114/69 95 05/04/22 00:20 36.9 C 81 20 113/67 95 05/03/22 22:20 36.7 C 84 20 111/68 97 05/03/22 21:50 36.5 C 88 18 124/83 99 05/03/22 21:20 36.7 C 72 20 118/72 97 05/03/22 20:40 52 L 10 L 121/72 97 05/03/22 20:30 63 14 120/77 100 05/03/22 20:20 54 L 9 L 117/76 100 05/03/22 20:14 36.4 C L 78 21 123/73 100 05/03/22 15:23 37 C 73 16 112/69 97 05/03/22 08:02 36.8 C 61 16 111/58 L 99 Pain Intensity Left Leg: Pain Intensity: 8 Transfer of Care Handoff Completed per policy Notes Mental Status: alert / awake / arousable and participated in evaluation Patient Amnestic to Procedure: Yes Nausea / Vomiting: adequately controlled Pain: adequately controlled Airway Patency, RR, SpO2: stable & adequate BP & HR: stable & adequate Hydration State: stable & adequate Neuraxial Anesthesia: was administered and sensory block is resolving Anesthetic Complications: no major complications apparent
[2022-05-04 07:08] LABS: Hematocrit (blood only) 36.7 % (42-52); Hemoglobin 12.8 g/dL (14.0-18.0); Immature Granulocytes # (auto) 0.03 K/uL (0.00-0.02); Immature Granulocytes % (auto) 0.2 %; Lymphocytes # (auto) 0.99 K/uL (1.2-3.4); Lymphocytes % (auto) 7.5 %; Mean Corpuscular Hemoglobin 31.1 pg (25-34); Mean Corpuscular Hgb Conc 34.9 g/dL (32-36); Mean Corpuscular Volume 89.1 fL (80-100); Mean Platelet Volume 10.1 fL (7.4-10.4); Monocytes # (auto) 1.21 K/uL (0.11-0.59); Monocytes % (auto) 9.2 %; Neutrophils # (auto) 10.92 K/uL (1.4-6.5); Neutrophils % (auto) 83.1 %; Platelet Count 191 K/uL (130-400); RDW Coefficient of Variation 12.2 % (11.5-14.5); RDW Standard Deviation 39.3 fL (36.4-46.3); Red Blood Count 4.12 M/uL (4.7-6.1); White Blood Count 13.15 K/uL (4.8-10.8)
[2022-05-04 07:29] LABS: BUN Creatinine Ratio 16.5 (10-20); Calcium 8.7 mg/dl (8.5-10.1); Creatinine Clr Calc Pharmacy 105.4 ml/min; Est GFR (African American) 117.5 ml/min; Est GFR (Non-African American) 101.4 ml/min; Potassium 4.5 mmol/L (3.5-5.1)
[2022-05-04] MEDS ORDERED: ERGOCALCIFEROL 50,000 UNITS 1250 MCG CAP PO SCH (09:00)
[2022-05-04] MEDS: SODIUM CHLORIDE 0.9% 1000ML 1,000 ML IV SCH (10:28)
[2022-05-04] MEDS: MUPIROCIN 2% OINT 22 GM TUBE EXT SCH ×2 (10:29→20:39)
--- NOTE | 2022-05-04 10:44 | Progress Notes ---
SUBJECTIVE: He is resting comfortably in bed. Pain is a factor. We discussed pain management plan. Also discussed with Margareth Jacobson from hospitalist service. No tingling or numbness. We discussed t he results of the surgical procedure. OBJECTIVE: He is afebrile. His vital signs are stable. Urine output is adequate. White count is 1 3, likely secondary to stress. Hemoglobin 13, hematocrit 37, platelets 191. PRP is noted. Vitamin D is 27 and he has received a 50,000 unit dose of vitamin D3. I reviewed his x-rays with him. Dressing clean and dry. Thigh is soft. He can flex and extend the ankle and toes. Plantarflexion, dorsiflexion, inversion, eversion, 5-/5 strength, dorsalis pedis 1+. Sensation intact. IMPRESSION: Postop day #1 status post open reduction internal fixation of left hip nondisplaced inte rtrochanteric fracture and displaced greater trochanteric fracture. PLAN: Work on PT in bed. Toe touch weightbearing with walker or crutches. Range of motion as leelee ated. Elevation, icing, pain control. Start Lovenox now. He will need to be limited weightbearing for 4-6 weeks. Job ID: [id number]
[2022-05-04] MEDS: ENOXAPARIN INJ 30 MG/0.3 ML SYR SQ SCH ×2 (11:06→20:38)
[2022-05-04] MEDS ORDERED: HYDROmorphone INJ 1 MG/ML SYRINGE IV PRN (11:12)
[2022-05-04] MEDS ORDERED: POLYETHYLENE (MIRALAX) 17 GM PACK PO PRN (11:13)
[2022-05-04] MEDS ORDERED: oxyCODONE HCL IR 5 MG TAB (IMMEDIATE RELEASE) PO PRN (11:14)
[2022-05-04] MEDS: DOCUSATE SODIUM 100 MG CAP PO SCH ×2 (11:51→20:38)
[2022-05-04] MEDS: NICOTINE 21 MG/24 HR TDSY TD SCH (11:51)
[2022-05-04] MEDS: oxyCODONE HCL IR 5 MG TAB (IMMEDIATE RELEASE) PO PRN ×2 (11:52→19:14)
--- NOTE | 2022-05-04 13:50 | Electrocardiogram Report ---
Test Reason : Blood Pressure : / mmHG Vent. Rate : 069 BPM Atrial Rate : 069 BPM P-R Int : 134 ms QRS Dur : 092 ms QT Int : 366 ms P-R-T Axes : 079 048 042 degrees QTc Int : 392 ms Normal sinus rhythm Normal ECG No previous ECGs available Confirmed by Luis Eduardo Chowdhury ([id number]) on 05/04/2022 1:50:04 PM Referred By: Prince MCCARTHY Confirmed By:Luis Eduardo Chowdhury
--- NOTE | 2022-05-04 15:44 | Hospitalist Progress Note ---
Date of Service May 04, 2022 Assessment & Plan (1) Closed left hip fracture: Plan: 46-year-old white male who was doing around house karate cake when he lost his footing and fell onto his left side sustaining a closed nondisplaced intertrochanteric hip fracture S/p IM nailing on 05/03, Dr. Mckenna. Uneventful perioperative course Pain currently not controlled with oxycodone, baclofen, and morphine Uptitrate pain regimen to provide 5 mg of oxycodone for pain 1-5, 10 mg for pain 6-10. Add Celebrex. Continue baclofen. Can utilize Dilaudid for breakthrough pain -- Lengthy discussion with patient regarding the risk of tachyphylaxis and opiate addiction which he claims to have a history of in his younger years currently he is not meeting his therapy goals and needs to remain in house. Therapy discussing potential need for rehab. Case management on board and reports needs to be okayed by the skilled nursing Continue incentive spirometry On Lovenox for DVT prophylaxis. We will need continued DVT prophylaxis X 30 to 35 days (would transition to Xarelto upon discharge) (2) Vitamin D deficiency: Plan: Vitamin D level low. Not surprising as he is currently incarcerated Vitamin D supplementation initiated. Would continue upon discharge Plan: Disposition unclear at this time. ? Discharge back to skilled nursing with PT/OT versus need for inpatient rehab Plan of care discussed with Dr. Sagastume Admission and Anticipated Discharge Date Admission Date: May 03, 2022 Subjective Patient seen on daily rounds today after just finishing with therapy. Not doing well from a therapy perspective, not meeting any of his therapy goals. He was only able to walk less than 5 feet independently and upon getting back into the bed, was not able to independently lift his left leg due to the severity of the pain. He is taking oxycodone without pain relief. He keeps complaining that his leg "is locking up". Rogel catheter remains in place. Has not had a bowel movement but is passing gas. Denies abdominal pain, nausea or vomiting. Nursing voices no complaints or concerns. Review of Systems Review of Systems: All systems reviewed and are unremarkable except as noted in HPI and below Denies fevers, chills, headache, nasal congestion, sore throat, cough, chest pain, shortness of breath, palpitations, orthopnea, PND, abdominal pain, nausea, vomiting, diarrhea, constipation, dysuria, hematuria, frequency, back pain, easy bruising or bleeding, skin lesions or rashes. Physical Exam Physical Exam: General: When I initially entered the room, he was attempting to get back into the bed after standing with therapy. He was screaming in pain. He needed to have the therapist aid him greatly in getting back into the bed including lifting his left leg up into the bed. While doing this, he was screaming (including profanities) the entire time HEENT: Head is AT/NC. Buccal mucosa is moist and pink Neck: No JVD. Negative hepatojugular reflex Cardiac: RRR without M/G/R Lungs: CTA without W/R/R Abdomen: Normoactive X4. Soft and nontender in all quadrants. Extremities: Left hip with dry and intact dressing. No obvious indwelling drains. Distal pulses to the bilateral lower extremities are intact and symmetrical. Capillary fill +2. Negative Homans' sign. No calf tenderness. Neuro: A&O X4. Cranial nerves II through XII are grossly intact. No focal neuro deficits Skin: No obvious skin lesions or rashes Psych: Appropriate affect. Pleasant and cooperative Results & Data Results & Data ([facility]) Vital Signs (Past 12 Hours) Vital Signs Temp Pulse Resp BP Pulse Ox 05/04/22 15:22 37.4 C 78 18 118/68 94 05/04/22 07:23 37.0 C 80 18 107/68 96 PG Care Time/CCT Total # of Minutes Spent Total Time Spent with Patient: Total time spent is greater than 50% in coordination of care (as documented) at patient's floor/unit and/or counseling patient: Coding Level of Care Code 64425 Subseq Hosp Care Lvl 2 Diagnoses Closed left hip fracture S72.002A Encounter type: initial encounter Vitamin D deficiency E55.9 (1) Closed left hip fracture Encounter type: initial encounter Qualified Code(s): S72.002A - Fracture of unspecified part of neck of left femur, initial encounter for closed fracture
[2022-05-04] MEDS: CELECOXIB 100 MG CAP PO SCH (20:43)
[2022-05-04] MEDS ORDERED: ENOXAPARIN INJ 30 MG/0.3 ML SYR SQ SCH (21:00)
[2022-05-05] MEDS: oxyCODONE HCL IR 5 MG TAB (IMMEDIATE RELEASE) PO PRN ×3 (08:23→20:35)
[2022-05-05] MEDS: DOCUSATE SODIUM 100 MG CAP PO SCH ×2 (08:23→20:30)
[2022-05-05] MEDS: MUPIROCIN 2% OINT 22 GM TUBE EXT SCH ×2 (08:24→20:30)
[2022-05-05] MEDS: CELECOXIB 100 MG CAP PO SCH ×2 (08:24→20:30)
[2022-05-05] MEDS: NICOTINE 21 MG/24 HR TDSY TD SCH (08:24)
[2022-05-05 08:50] LABS: Basophils # (auto) 0.01 K/uL (0-0.2); Basophils % (auto) 0.1 %; Eosinophils # (auto) 0.04 K/uL (0-0.5); Eosinophils % (auto) 0.4 %; Hemoglobin 11.4 g/dL (14.0-18.0); Immature Granulocytes # (auto) 0.03 K/uL (0.00-0.02); Immature Granulocytes % (auto) 0.3 %; Lymphocytes # (auto) 2.17 K/uL (1.2-3.4); Lymphocytes % (auto) 21.5 %; Mean Corpuscular Hemoglobin 30.8 pg (25-34); Mean Corpuscular Hgb Conc 34.5 g/dL (32-36); Mean Corpuscular Volume 89.2 fL (80-100); Mean Platelet Volume 9.9 fL (7.4-10.4); Monocytes # (auto) 1.29 K/uL (0.11-0.59); Monocytes % (auto) 12.8 %; Neutrophils # (auto) 6.57 K/uL (1.4-6.5); Neutrophils % (auto) 64.9 %; Platelet Count 184 K/uL (130-400); RDW Coefficient of Variation 12.5 % (11.5-14.5); RDW Standard Deviation 40.5 fL (36.4-46.3); White Blood Count 10.11 K/uL (4.8-10.8)
[2022-05-05 09:10] LABS: BUN Creatinine Ratio 16.1 (10-20); Calcium 8.4 mg/dl (8.5-10.1); Creatinine Clr Calc Pharmacy 110.3 ml/min; Est GFR (African American) 120.8 ml/min; Est GFR (Non-African American) 104.2 ml/min; Magnesium 1.9 mg/dl (1.7-2.4); Potassium 3.7 mmol/L (3.5-5.1)
[2022-05-05] MEDS: ENOXAPARIN INJ 30 MG/0.3 ML SYR SQ SCH ×2 (10:40→20:30)
--- NOTE | 2022-05-05 11:44 | Progress Notes ---
DATE OF SERVICE: 05/05/2022 Albert has noted improvement. He has been able to get up and move around a little bit more, move his l eg more, but still has difficulty with his left leg. He is afebrile. His vital signs are stable. W german count 10, hemoglobin 11, hematocrit 33, platelets 184. PRP is noted. Distal neurovascular intact. Dressing is changed. Incision is benign. No hematoma. Postop day #2 ____ hip greater trochanter fracture and a nondisplaced intertrochanteric fracture, sta tus post tension band wiring and DHS. PLAN: Toe-touch weightbearing. Consider rehab. He will need outpatient followup with me and may ne ed outpatient physical therapy. Continue Lovenox for DVT prophylaxis. PT. Vitamin D is low and de ficient and is being replaced. Job ID: [id number]
--- NOTE | 2022-05-05 12:49 | Hospitalist Progress Note ---
Date of Service May 05, 2022 Assessment & Plan (1) Closed left hip fracture: Plan: 46-year-old white male who was doing around house karate cake when he lost his footing and fell onto his left side sustaining a closed nondisplaced intertrochanteric hip fracture S/p IM nailing on 05/03, Dr. Mckenna. Uneventful perioperative course Pain currently not controlled with oxycodone, baclofen, and morphine Uptitrate pain regimen to provide 5 mg of oxycodone for pain 1-5, 10 mg for pain 6-10. Celebrex added. Continue baclofen. Can utilize Dilaudid for breakthrough pain * Lengthy discussion with patient regarding the risk of tachyphylaxis and opiate addiction which he claims to have a history of in his younger years * Pain better controlled today currently he is not meeting his therapy goals and rehab is recommended. Case management on board and sent referral to [facility]. Continue incentive spirometry On Lovenox for DVT prophylaxis. We will need continued DVT prophylaxis X 30 to 35 days (would transition to Xarelto upon discharge) (2) Vitamin D deficiency: Plan: Vitamin D level low. Not surprising as he is currently incarcerated Vitamin D supplementation initiated. Would continue upon discharge Plan: Disposition: inpt rehab, referral sent to [facility]. CM on board. Medically stable for d/c when/if rehab can take him. Plan of care discussed with Dr. Sagastume Admission and Anticipated Discharge Date Admission Date: May 03, 2022 Subjective Patient seen on daily rounds this morning. He is pod#2 from ORIF of L hip d/t nondisplaced intertrochanteric hip fx. He reports he was able to get up and ambulate to the bathroom on his own. He did need assistance getting back into bed. Pain seems better controlled. Rogel removed, he has been voiding w/o issue and had a BM yesterday. He denies cp or dyspnea. Not meeting therapy goals and therapy is recommending rehab. CM sent referral to [facility]. Review of Systems Review of Systems: All systems reviewed and are unremarkable except as noted in HPI and below. Denies fever, chills, fatigue, headache, nasal congestion, sore throat, cough, chest pain, shortness of breath, palpitations, orthopnea, PND, abdominal pain, n/v/d, constipation, dysuria, hematuria, frequency, back pain, easy bruising or bleeding, skin lesions or rashes. Physical Exam Physical Exam: GENERAL: 46 yo Well-developed, well-nourished WM. NAD. LUNGS: Clear to auscultation bilaterally. No W/R/R. CARDIOVASCULAR: Regular rate and rhythm. ABDOMEN: Soft, non-tender and non-distended. BS normoactive x 4 quad. EXTREMITIES: No edema. Non-tender. Peripheral pulses +2/4. Left leg NV intact. Surgical site dressed. No calf tenderness or swelling. NEUROLOGIC: A&O x3. PSYCHIATRIC: Cooperative. Appropriate mood and affect. SKIN: Warm, dry, intact. No rashes or lesions. Results & Data Results & Data ([facility]) Vital Signs (Past 12 Hours) Vital Signs Temp Pulse Resp BP Pulse Ox 05/05/22 07:49 37.5 C 89 16 118/64 96 PG Care Time/CCT Total # of Minutes Spent Total Time Spent with Patient: Total time spent is greater than 50% in coordination of care (as documented) at patient's floor/unit and/or counseling patient: Coding Level of Care Code 86938 Subseq Hosp Care Lvl 2 Diagnoses Closed left hip fracture S72.002A Encounter type: initial encounter Vitamin D deficiency E55.9 (1) Closed left hip fracture Encounter type: initial encounter Qualified Code(s): S72.002A - Fracture of unspecified part of neck of left femur, initial encounter for closed fracture
[2022-05-06] MEDS: oxyCODONE HCL IR 5 MG TAB (IMMEDIATE RELEASE) PO PRN ×2 (07:56→15:31)
[2022-05-06] MEDS: NICOTINE 21 MG/24 HR TDSY TD SCH (07:57)
[2022-05-06] MEDS: DOCUSATE SODIUM 100 MG CAP PO SCH (07:57)
[2022-05-06] MEDS: MUPIROCIN 2% OINT 22 GM TUBE EXT SCH (07:58)
[2022-05-06] MEDS: CELECOXIB 100 MG CAP PO SCH (07:58)
[2022-05-06] MEDS: ENOXAPARIN INJ 30 MG/0.3 ML SYR SQ SCH (10:01)
--- NOTE | 2022-05-06 10:42 | Orthopedic Progress Note ---
Date of Service May 06, 2022 Assessment & Plan (1) Closed left hip fracture: Plan: PT/OT Weightbearing as tolerated with walker assistance Ice with easy wrap Pain control with PO medication Lovenox and KAYLI stockings for DVT prophylaxis Case management to follow and establish placement for rehab Admission and Anticipated Discharge Date Admission Date: May 03, 2022 Subjective This 46-year-old male inmate [facility] is seen on daily rounds this morning. He is pod#3 ORIF of L hip d/t nondisplaced intertrochanteric hip fx. He reports he was able to get up and ambulate to the bathroom on his own. He did need assistance getting back into bed. Pain seems better controlled. He has been voiding w/o issue and had a BM yesterday. Patient denies chest pain, shortness of breath, fever, chills, sweats, lethargy, numbness or tingling in his left lower extremity. He also denies nausea, vomiting or diarrhea. Per therapy's note patient is not meeting goals set up and established and they are recommending that he go to a rehab facility. After talking with the guards with him. They stated that the case coordinator is recommending that he go to [facility] for rehab. Review of Systems Review of Systems: All systems reviewed & are unremarkable except as noted in Subjective Physical Exam Physical Exam: Left lower extremity: Patient is unable to perform active straight leg raise test. Was able to perform an active assisted straight leg raise test using his right lower extremity for assistance. He is able to actively dorsi and plantarflex foot without issue. Dressing is clean dry and intact. Patient still experiences tenderness to palpation over and around the incision site. Patient still experiences some slight pain with logrolling and passive internal and external rotation. He was able to extend his knee to 0 degrees and flex to 90 degrees without issue. There is no erythema, warmth or palpable knee deformity. Patient is neurovascularly intact in the left lower extremity. Results & Data ([facility]) Vital Signs (Past 12 Hours) Vital Signs Temp Pulse Resp BP Pulse Ox 05/06/22 07:41 37.1 C 70 18 106/66 96 Diagnostic Findings Laboratory Results WBC 10.11 K/uL (4.8-10.8) 05/05/22 08:20 RBC 3.70 M/uL (4.7-6.1) L 05/05/22 08:20 Hgb 11.4 g/dL (14.0-18.0) L 05/05/22 08:20 Hct 33.0 % (42-52) L 05/05/22 08:20 MCV 89.2 fL (80-100) 05/05/22 08:20 MCH 30.8 pg (25-34) 05/05/22 08:20 MCHC 34.5 g/dL (32-36) 05/05/22 08:20 RDW Std Deviation 40.5 fL (36.4-46.3) 05/05/22 08:20 RDW Coeff of Crystal 12.5 % (11.5-14.5) 05/05/22 08:20 Plt Count 184 K/uL (130-400) 05/05/22 08:20 MPV 9.9 fL (7.4-10.4) 05/05/22 08:20 Immature Gran % (Auto) 0.3 % 05/05/22 08:20 Neut % (Auto) 64.9 % 05/05/22 08:20 Lymph % (Auto) 21.5 % 05/05/22 08:20 Creek % (Auto) 12.8 % 05/05/22 08:20 Eos % (Auto) 0.4 % 05/05/22 08:20 Baso % (Auto) 0.1 % 05/05/22 08:20 Neut # (Auto) 6.57 K/uL (1.4-6.5) H 05/05/22 08:20 Lymph # (Auto) 2.17 K/uL (1.2-3.4) 05/05/22 08:20 Creek # (Auto) 1.29 K/uL (0.11-0.59) H 05/05/22 08:20 Eos # (Auto) 0.04 K/uL (0-0.5) 05/05/22 08:20 Baso # (Auto) 0.01 K/uL (0-0.2) 05/05/22 08:20 Immature Gran # (Auto) 0.03 K/uL (0.00-0.02) H 05/05/22 08:20 PT 10.8 Seconds (9.0-12.0) 05/02/22 22:49 INR 1.0 (0.9-1.1) 05/02/22 22:49 APTT 23.6 Seconds (21.0-31.0) 05/02/22 22:49 PTT Ratio 0.9 05/02/22 22:49 Sodium 136 mmol/L (136-145) 05/05/22 08:20 Potassium 3.7 mmol/L (3.5-5.1) 05/05/22 08:20 Chloride 103 mmol/L (98-107) 05/05/22 08:20 Carbon Dioxide 28 mmol/L (21-32) 05/05/22 08:20 Anion Gap 5 (3-11) 05/05/22 08:20 BUN 14 mg/dl (6-23) 05/05/22 08:20 Creatinine 0.87 mg/dl (0.6-1.4) 05/05/22 08:20 Est Cr Clr Drug Dosing 110.3 ml/min 05/05/22 08:20 Est GFR ( Amer) 120.8 ml/min 05/05/22 08:20 Est GFR (Non-Af Amer) 104.2 ml/min 05/05/22 08:20 BUN/Creatinine Ratio 16.1 (10-20) 05/05/22 08:20 Glucose 107 mg/dl (70-99(Fasting)) H 05/05/22 08:20 Calcium 8.4 mg/dl (8.5-10.1) L 05/05/22 08:20 Magnesium 1.9 mg/dl (1.7-2.4) 05/05/22 08:20 Total Bilirubin 0.6 mg/dl (0.2-1.0) 05/02/22 22:49 AST 28 U/L (13-39) 05/02/22 22:49 ALT 16 U/L (7-52) 05/02/22 22:49 Alkaline Phosphatase 68 U/L (34-104) 05/02/22 22:49 Total Protein 6.7 gm/dl (6.0-8.3) 05/02/22 22:49 Albumin 4.1 gm/dl (3.4-5.0) 05/02/22 22:49 Globulin 2.6 gm/dl (2.5-4.0) 05/02/22 22:49 Albumin/Globulin Ratio 1.6 (0.9-2) 05/02/22 22:49 25-OH Vitamin D Total 26.7 ng/ml (30-100) L 05/04/22 06:38 PTH Intact 51.2 pg/ml (12.0-88.0) 05/03/22 01:40 Nasal Screen MRSA (PCR) Negative (Negative) 05/03/22 01:55 SARS-CoV-2, RNA, NAAT NEGATIVE (NEGATIVE) 05/02/22 22:19 Impressions Femur X-Ray 05/02/22 20:45 XR pelvis 1-2V routine, XR femur LT 2V routine CLINICAL HISTORY: left hip pain TECHNIQUE: A single frontal view of the pelvis was obtained. 2 views of the left femur were obtained. Comparison: None available at the time of this dictation. FINDINGS: There is an intratrochanteric fracture of the left femur which is nondisplaced. Mild degenerative changes are seen in left greater than right hips. Soft tissue swelling is seen about the left hip. IMPRESSION: Nondisplaced intratrochanteric fracture of the left hip. ACT 112: Negative or not required by law. Electronically signed by: Rojelio Lomeli M.D. 05/03/2022 7:17 AM Pelvis X-Ray 05/02/22 20:45 XR pelvis 1-2V routine, XR femur LT 2V routine CLINICAL HISTORY: left hip pain TECHNIQUE: A single frontal view of the pelvis was obtained. 2 views of the left femur were obtained. Comparison: None available at the time of this dictation. FINDINGS: There is an intratrochanteric fracture of the left femur which is nondisplaced. Mild degenerative changes are seen in left greater than right hips. Soft tissue swelling is seen about the left hip. IMPRESSION: Nondisplaced intratrochanteric fracture of the left hip. ACT 112: Negative or not required by law. Electronically signed by: Rojelio Lomeli M.D. 05/03/2022 7:17 AM Chest X-Ray 05/02/22 22:08 XR chest 1V portable CLINICAL HISTORY: left hip fx TECHNIQUE: Single frontal radiograph of the chest was obtained. Comparison: None available at the time of this dictation. FINDINGS: No lines and tubes are seen. The cardiomediastinal silhouette is normal. The lungs are clear. No evidence of pleural effusion or pneumothorax. IMPRESSION: No acute chest disease. ACT 112: Negative or not required by law. Electronically signed by: Rojelio Lomeli M.D. 05/03/2022 7:[address] 05/02/22 23:09 CT SCAN OF THE LEFT HIP WITHOUT IV CONTRAST CLINICAL HISTORY: Left hip fracture. COMPARISON STUDY: Radiographs of the left femur dated 05/02/2022. TECHNIQUE: CT scan of the left hip is performed from the bony pelvis to the femoral shaft. Images are reviewed in the axial, sagittal, coronal planes. IV contrast was not administered for this examination. 3-D reformats are created and assessed. A dose lowering technique was utilized adhering to the principles of ALARA. CT DOSE: 150.18 mGy.cm FINDINGS: The skeletal structures are well mineralized. There is a comminuted intertrochanteric fracture of the left proximal femur. The largest fragment of the greater trochanter is displaced by 7 mm. Overlying hemorrhage is noted. No additional fracture is seen involving the visualized left hemipelvis. The joint space of the left hip is well maintained. There is no evidence of avascular necrosis of the left femoral head. No lytic or blastic lesion is seen. There is no significant hip joint effusion. No large hematoma is identified. The regional musculature is normal in bulk. The partially visualized bladder is decompressed around a Rogel catheter. No left pelvic sidewall or inguinal adenopathy is seen. There is rectosigmoid fecal impaction. IMPRESSION: Intertrochanteric fracture of the left proximal femur as above. ACT 112: Negative or not required by law. Dictated: 05/03/2022 7:45 AM Transcribed: 05/03/2022 8:03 AM Mayela [id number] [facility] Electronically signed by: Matthew Powell M.D. 05/03/2022 8:07 AM Hip X-Ray 05/03/22 14:30 FL hip LT 2-3V HISTORY: 46 years-old Male LT SHORT TROCH acute fracture of the left femur COMPARISON: CT left hip 05/02/2022 TECHNIQUE: 5 spot fluoroscopic images of the left hip were obtained utilizing 105.2 seconds fluoroscopy time FINDINGS: Status post placement of an intertrochanteric nail with lateral fixation plate fixating the acute intertrochanteric left femoral fracture. There are 2 K wire devices within the greater trochanter with cerclage wires. Satisfactory near- anatomic alignment. Expected postoperative soft tissue swelling with deep tissue air. IMPRESSION: Fluoroscopic assistance as above. ACT 112: Negative or not required by law. The above report was generated using voice recognition software. It may contain grammatical, syntax or spelling errors. Electronically signed by: Mitchel Castanon M.D. 05/03/2022 7:57 PM (1) Closed left hip fracture Encounter type: initial encounter Qualified Code(s): S72.002A - Fracture of unspecified part of neck of left femur, initial encounter for closed fracture
--- NOTE | 2022-05-06 13:06 | Discharge Summary ---
Date of Service May 06, 2022 Admission HPI Per Admitting Provider The patient is a 46-year-old male with no significant past medical history who presents to the emergency department after the acute onset left hip pain as noted above. X-rays in the emergency department revealed a closed left hip fracture. Hip CT showed a mildly comminuted intertrochanteric fracture of the proximal left femur with slight displacement of the greater trochanter and an essentially nondisplaced fracture line extending across the proximal femur to the lesser trochanter. Principal Diagnosis 1. Acute left hip fracture s/p ORIF 2. Vitamin D Deficiency Discharge Exam GENERAL: 46 yo Well-developed, well-nourished WM. NAD. LUNGS: Clear to auscultation bilaterally. No W/R/R. CARDIOVASCULAR: Regular rate and rhythm. ABDOMEN: Soft, non-tender and non-distended. BS normoactive x 4 quad. EXTREMITIES: No edema. Non-tender. Peripheral pulses +2/4. Left leg NV intact. Surgical site dressed. No calf tenderness or swelling. NEUROLOGIC: A&O x3. PSYCHIATRIC: Cooperative. Appropriate mood and affect. SKIN: Warm, dry, intact. No rashes or lesions. Discharge Data Allergies Allergy/AdvReac Type Severity Reaction Status Date / Time No Known Allergies Allergy Unverified 05/02/22 22:51 Consultations 05/02/22 22:08 Consult Orthopedic Surgery Routine 05/02/22 22:30 ED Decision to Admit Stat Procedures Performed Operation Date: 05/03/22 08:20 Actual Procedures p Left Hip Open Reduction Internal Fixation with Dynamic Hip Screw(Left) - Paulino Mckenna MD Ordered Studies Femur X-Ray 05/02/22 20:45 XR pelvis 1-2V routine, XR femur LT 2V routine CLINICAL HISTORY: left hip pain TECHNIQUE: A single frontal view of the pelvis was obtained. 2 views of the left femur were obtained. Comparison: None available at the time of this dictation. FINDINGS: There is an intratrochanteric fracture of the left femur which is nondisplaced. Mild degenerative changes are seen in left greater than right hips. Soft tissue swelling is seen about the left hip. IMPRESSION: Nondisplaced intratrochanteric fracture of the left hip. ACT 112: Negative or not required by law. Electronically signed by: Rojelio Lomeli M.D. 05/03/2022 7:17 AM Pelvis X-Ray 05/02/22 20:45 XR pelvis 1-2V routine, XR femur LT 2V routine CLINICAL HISTORY: left hip pain TECHNIQUE: A single frontal view of the pelvis was obtained. 2 views of the left femur were obtained. Comparison: None available at the time of this dictation. FINDINGS: There is an intratrochanteric fracture of the left femur which is nondisplaced. Mild degenerative changes are seen in left greater than right hips. Soft tissue swelling is seen about the left hip. IMPRESSION: Nondisplaced intratrochanteric fracture of the left hip. ACT 112: Negative or not required by law. Electronically signed by: Rojelio Lomeli M.D. 05/03/2022 7:17 AM Chest X-Ray 05/02/22 22:08 XR chest 1V portable CLINICAL HISTORY: left hip fx TECHNIQUE: Single frontal radiograph of the chest was obtained. Comparison: None available at the time of this dictation. FINDINGS: No lines and tubes are seen. The cardiomediastinal silhouette is normal. The lungs are clear. No evidence of pleural effusion or pneumothorax. IMPRESSION: No acute chest disease. ACT 112: Negative or not required by law. Electronically signed by: Rojelio Lomeli M.D. 05/03/2022 7:[address] 05/02/22 23:09 CT SCAN OF THE LEFT HIP WITHOUT IV CONTRAST CLINICAL HISTORY: Left hip fracture. COMPARISON STUDY: Radiographs of the left femur dated 05/02/2022. TECHNIQUE: CT scan of the left hip is performed from the bony pelvis to the femoral shaft. Images are reviewed in the axial, sagittal, coronal planes. IV contrast was not administered for this examination. 3-D reformats are created and assessed. A dose lowering technique was utilized adhering to the principles of ALARA. CT DOSE: 150.18 mGy.cm FINDINGS: The skeletal structures are well mineralized. There is a comminuted intertrochanteric fracture of the left proximal femur. The largest fragment of the greater trochanter is displaced by 7 mm. Overlying hemorrhage is noted. No additional fracture is seen involving the visualized left hemipelvis. The joint space of the left hip is well maintained. There is no evidence of avascular necrosis of the left femoral head. No lytic or blastic lesion is seen. There is no significant hip joint effusion. No large hematoma is identified. The regional musculature is normal in bulk. The partially visualized bladder is decompressed around a Rogel catheter. No left pelvic sidewall or inguinal adenopathy is seen. There is rectosigmoid fecal impaction. IMPRESSION: Intertrochanteric fracture of the left proximal femur as above. ACT 112: Negative or not required by law. Dictated: 05/03/2022 7:45 AM Transcribed: 05/03/2022 8:03 AM Mayela [id number] [email or web address] Electronically signed by: Matthew Powell M.D. 05/03/2022 8:07 AM Hip X-Ray 05/03/22 14:30 FL hip LT 2-3V HISTORY: 46 years-old Male LT SHORT TROCH acute fracture of the left femur COMPARISON: CT left hip 05/02/2022 TECHNIQUE: 5 spot fluoroscopic images of the left hip were obtained utilizing 105.2 seconds fluoroscopy time FINDINGS: Status post placement of an intertrochanteric nail with lateral fixation plate fixating the acute intertrochanteric left femoral fracture. There are 2 K wire devices within the greater trochanter with cerclage wires. Satisfactory near- anatomic alignment. Expected postoperative soft tissue swelling with deep tissue air. IMPRESSION: Fluoroscopic assistance as above. ACT 112: Negative or not required by law. The above report was generated using voice recognition software. It may contain grammatical, syntax or spelling errors. Electronically signed by: Mitchel Castanon M.D. 05/03/2022 7:57 PM Hospital Course (1) Closed left hip fracture: 46-year-old white male who was doing around house [employer] cake when he lost his footing and fell onto his left side sustaining a closed nondisplaced intert rochanteric hip fracture S/p IM nailing on 05/03, Dr. Mckenna. Uneventful perioperative course Pain currently not controlled with oxycodone, baclofen, and morphine Pain regimen adjusted to provide 5 mg of oxycodone for pain 1-5, 10 mg for pain 6-10. Celebrex added. Continued baclofen. Dilaudid utilized for breakthrough pain * Lengthy discussion with patient regarding the risk of tachyphylaxis and opiate addiction which he claims to have a history of in his younger years * Pain better controlled with changes currently he is not meeting his therapy goals and rehab is recommended. Case management on board and sent referral to [facility]. Continue incentive spirometry On Lovenox for DVT prophylaxis which will transition to Xarelto 10mg daily upon d/c, needs to continue x 30-35 days (2) Vitamin D deficiency: Vitamin D level low. Not surprising as he is currently incarcerated Supplementation ordered, recommend repeat Vitamin D level in 3 months Patient is medically and hemodynamically stable for discharge to [facility] today. Will f/u with ortho in 2 weeks. Above plan of care has been d/w Dr. Sagastume who has also seen and evaluated this patient and is in agreement with the aforementioned. Total Time Total Time Spent Total Time Spent (In Minutes): >30 minutes Discharge Plan Discharge Items Patient Disposition: Transfer Inpatient Rehab Fac Reason For Visit: CLOSED L FEMUR FRACTURE Discharge Diagnosis: Intertrochanteric fracture and greater trochanteric fracture left hip Activity: Per Instructions section Weightbearing: Left toe touch Weightbearing Comment: At all times with assistance of walker or crutches. Non-emergency contact: Primary Care Provider and Surgeon Call non-emergency contact if: you have any medication questions, your pain is not controlled and your pain is worsening Follow-up/Referrals: [facility] M[facility]ARTHY [Primary Care Provider] - Diet: Regular Addtl Attending Provider Instructions: You were hospitalized due to a fracture of your left hip. You underwent repair of the fracture by orthopedics. It is important to follow all post-operative instructions provided by orthopedics as outlined below. You are to follow up with Dr. Mckenna in the office in 2 weeks. You are being prescribed Oxycodone to use as needed for pain. Please take dose that directly correlates with your pain. If you are having mild pain (scale 1- 3) take Tylenol, you may use up to 1000mg of Tylenol every 6 hours for a MAX dose of 4000mg per day. For pain scale 4-6, you may take 5mg of Oxycodone. For pain scale 7-10, you may take 10mg of Oxycodone. Keep in mind, this medication can cause constipation, so you should continue the stool softener as prescribed as well to prevent this. Therapy is recommending that you continue with aggressive rehabilitation which is why you are being sent to [facility]. When they feel that you have progressed well enough to return to [facility], you will be discharged. In order to prevent blood clots from your fracture and surgery, you are being prescribed a medication that helps thin your blood called Xarelto. You will take this medication once a day (with dinner) for the next 35 days (unless instructed to stop sooner by a healthcare professional). You were also found to have a low Vitamin D level. This can have a direct impact on the strength of your bones and if low can predispose you to fractures. You have been started on Vitamin D supplementation which is to be taken once a week on Wednesdays. You need to continue this medication and should have follow up labs which can be checked by the [facility] in 3 months. The healthcare team at [facility] will follow up with you upon your arrival and throughout your stay. Addtl Fitness Trainer Provider Instructions: Patient needs to be toe-touch weightbearing left lower extremity at all times. Use walker or crutches to assist with ambulation. Allowed for full range of motion of left hip and left knee and left ankle as tolerated. Physical therapy and Occupational Therapy daily. On postoperative day 4 he may shower. May get the incision wet, pat incisions dry and redress with a light dressing. Keep incision covered at all times. Ice and elevate left lower extremity as needed for pain and swelling. Follow-up with Dr. Mckenna in approximately 10 to 14 days after surgery for suture removal. Call our office with any increased pain, swelling, redness, warmth, fevers or chills, drainage from incision. Pending Studies at Discharge: No Stand-Alone Forms: My [facility] Skilled Items Patient informed of condition?: Yes DNR: No Discharge Level of Care: Acute rehab Communicable Disease: No Discharge Prognosis: Stable Lines: None Urinary Catheter: No Medications and DC Order Prescriptions: New docusate sodium 100 mg Capsule 100 mg PO BID Qty: 60 RF: 0 ergocalciferol (vitamin D2) 1,250 mcg (50,000 unit) Capsule 50,000 unit PO We@0900 Qty: 4 RF: 0 celecoxib [Celebrex] 100 mg Capsule 100 mg PO BID Qty: 60 RF: 0 oxycodone 5 mg Tablet 5 - 10 mg PO Q6 PRN (Reason: pain) Qty: 20 RF: 0 Xarelto 10 mg tablet 10 mg PO DAILY 35 Days Qty: 35 RF: 0 Discharge Orders: Discharge Order (Routine); Ordered 05/06/22 Ordered By: Jerri Murguia Admission Data Admit Date/Time: 05/03/22 00:38 Attending Provider: Paulino Sagastume Admit Provider: Dale Sparks Primary Care Provider: [facility] MCCARTHY Other Providers: Paulino Mckenna ; Dale Sparks ; [facility],[place] Other Interventions: Discharge Summary Assessment (RN) Last Done: 05/06/22 14:40 Supervising Physician Co-Signing Physician Notes Patient seen and examined, chart reviewed, case discussed with Marii Murguia PA-C and I agree with the assessment and plan as above except as otherwise noted seen at bedside prior to discharge. Pain improved, patient is having improvement in his ability to flex his thigh and move the knee. Is hopeful for continued progress at rehab. May weight-bear as tolerated with walker, continue Lovenox and KAYLI stockings for DVT prophylaxis. Sensation to soft touch intact in feet bilaterally, PT pulses intact, cap refill brisk in the hallux bilaterally. Cannot perform straight leg raise test but is able to activate quads more so than prior surgical dressing C/D/I. Ankle plantar flexion and dorsiflexion 5/5 bilaterally without asymmetry. Okay for discharge to [facility] today Coding Level of Care Code D/C DAY MANAGEMENT >30 MINS Diagnoses Closed left hip fracture S72.002A Encounter type: initial encounter Vitamin D deficiency E55.9
== END 2022-05-06 16:09 | DRG 482 ==
LOC: ED 20:37 → 3W 05-03 00:38 → SUATTDRO 05-03 00:38 → 3W 05-03 01:09